=== PATIENT | female | born 1955 | race Caucasian/White ===

== ENCOUNTER → 2023-08-25 13:39 | Outpatient (REF) | payer MEDICARE, OTHER, SELFPAY | LOC: PAVMRI 13:39 | PROVIDERS: ATTENDING PHYSICIAN Internal Medicine Gastroenterology; FAMILY PHYSICIAN Internal Medicine | DX: R10.13 Epigastric pain (principal); Z13.6 Encounter for screening for cardiovascular disorders; E53.8 Deficiency of other specified B group vitamins; E55.9 Vitamin D deficiency, unspecified; R73.03 Prediabetes | CPT/HCPCS: 74183; A9575 ==

== ENCOUNTER → 2023-08-26 11:55 | Outpatient (REF) | payer MEDICARE, OTHER, SELFPAY ==
[2023-08-25 15:35] LABS: % Basophils 0.8 % (0-2); % Eosinophils 5.7 % (0-6); % Immature Granulocytes 0.3 % (0-0.5); % Lymphocytes 35.4 % (20.5-51.1); % Monocytes 6.8 % (1.7-9.3); Absolute Eosinophils 0.2 10^3/uL (0-0.7); Absolute Lymphocytes 1.3 10^3/uL (1.2-3.4); Absolute Monocytes 0.3 10^3/uL (0.1-0.6); Absolute Neutrophils 1.9 10^3/uL (1.4-6.5); Hematocrit 33.2 % (37.0-47.0); Hemoglobin 10.7 g/dL (12.0-16.0); Mean Corp Hgb Conc. 32.2 g/dL (33.0-37.0); Mean Corpuscular Hgb 32.4 pg (27.0-31.0); Mean Corpuscular Volume 100.6 fL (81.0-99.0); Mean Platelet Volume 11.8 fL (7.4-10.4); Nucleated Red Blood Cells % 0 %; Platelet Count 231 10^3/uL (130-400); Red Cell Dist. Width 15.1 % (11.5-14.5); White Blood Cell Count 3.7 10^3/uL (4.8-10.8)
[2023-08-25 16:07] LABS: ALT (SGPT) 12 U/L (0-35); AST (SGOT) 23 U/L (14-36); Albumin 4.6 g/dl (3.5-5.0); Alkaline Phosphatase 126 U/L (38-126); Blood Urea Nitrogen 13 mg/dl (7-17); Calcium 9.2 mg/dl (8.4-10.2); Carbon Dioxide 21 mmol/L (22-30); Chloride 105 mmol/L (98-107); Glucose 91 mg/dl (70-99); HDL Cholesterol 79 mg/dl; Iron 173 ug/dl (37-170); LDL Cholesterol, Calculated 111 mg/dl; Potassium 4.5 mmol/L (3.5-5.1); Sodium 138 mmol/L (135-145); Total Bilirubin 0.4 mg/dl (0.2-1.3); Total Cholesterol 229 mg/dl (50-199); Total Protein 7.7 g/dl (6.3-8.2); Triglyceride 199 mg/dl (10-149); Very Low Density Lipoprotein 39 mg/dl (0-30); eGFR > 60.00
[2023-08-25 16:17] LABS: Percent Saturation 44 % (20-50); Total Iron Binding Capacity 386 ug/dl (265-497)
[2023-08-25 16:25] LABS: Vitamin D, 25-OH*** 23.2 ng/mL (30-80)
[2023-08-25 16:39] LABS: TSH Reflex To Free T4 1.36 uIU/ml (0.47-4.68)
[2023-08-25 16:43] LABS: Ferritin 11.4 ng/ml (11.1-264.0)
[2023-08-25 16:58] LABS: Vitamin B12 285 pg/ml (239-931)
[2023-08-26 09:30] LABS: Glycohemoglobin (HgbA1c) 5.2 % (4.0-5.6)
== END ==
LOC: PAVMRI 11:55
PROVIDERS: ATTENDING PHYSICIAN Internal Medicine
DX: I10 Essential (primary) hypertension (principal); D50.9 Iron deficiency anemia, unspecified; R73.03 Prediabetes; E53.8 Deficiency of other specified B group vitamins; E55.9 Vitamin D deficiency, unspecified
CPT/HCPCS: 36415; 72146; 72148; 80053; 80061; 82306; 82607; 82728; 83036; 83540; 83550; 84443; 85025

== ENCOUNTER → 2024-01-02 12:23 | Outpatient (REF) | payer MEDICARE, OTHER, SELFPAY ==
[2024-01-02 13:35] LABS: Hematocrit 33.1 % (37.0-47.0); Hemoglobin 10.7 g/dL (12.0-16.0); Mean Corp Hgb Conc. 32.3 g/dL (33.0-37.0); Mean Corpuscular Hgb 33.6 pg (27.0-31.0); Mean Corpuscular Volume 104.1 fL (81.0-99.0); Mean Platelet Volume 11.6 fL (7.4-10.4); Platelet Count 198 10^3/uL (130-400); Red Blood Cell Count 3.18 10^6/uL (4.20-5.40); Red Cell Dist. Width 13.8 % (11.5-14.5)
[2024-01-02 13:58] VITALS: BMI 20.2
[2024-01-02 15:51] LABS: ALT (SGPT) 15 U/L (0-35); AST (SGOT) 24 U/L (14-36); Albumin 4.5 g/dl (3.5-5.0); Alkaline Phosphatase 87 U/L (38-126); Blood Urea Nitrogen 14 mg/dl (7-17); Calcium 8.8 mg/dl (8.4-10.2); Carbon Dioxide 25 mmol/L (22-30); Chloride 108 mmol/L (98-107); Estimated Creatinine Clearance 53 ml/min; Glucose 92 mg/dl (70-99); Potassium 5.7 mmol/L (3.5-5.1); Sodium 143 mmol/L (135-145); Total Bilirubin 0.4 mg/dl (0.2-1.3); Total Protein 7.1 g/dl (6.3-8.2); eGFR > 60.00
== END ==
LOC: SDSPAT 12:23
PROVIDERS: ATTENDING PHYSICIAN Orthopaedic Surgery Orthopaedic Surgery of the Spine; FAMILY PHYSICIAN Internal Medicine
DX: Z01.818 Encounter for other preprocedural examination (principal)
CPT/HCPCS: 36415; 80053; 85027; 86850; 86900; 86901; 87070; 93005

== ENCOUNTER 2024-01-18 06:51 | Day surgery (SDC) | payer MEDICARE, OTHER, SELFPAY ==
[2024-01-10 11:26] VITALS: BMI 20.2
--- NOTE | 2024-01-12 11:16 | PTCARENOTE ---
K+ 5.7, Kallie at MD office notified.
--- NOTE | 2024-01-12 14:22 | VNURNOTE ---
Received information from Clotilde Gonzáles in [facility] that patient intends to stay overnight after surgery on 01/17 and then go to rehab. Potential need for [facility]. Called patient, no answer, left message. Referral in [facility] in case needed.
--- NOTE | 2024-01-13 13:36 | PTCARENOTE ---
Patients 01/01 potassium- 5.7- reviwed by Dr. Reeves- no additional interventions required
[2024-01-18] VITALS (21 sets, daily range): BP systolic 89–135; BP diastolic 57–84; BMI 20.2
[2024-01-18] MEDS: TYLENOL 1000 MG PO ×2 (09:16→16:10)
[2024-01-18] MEDS: SKELAXIN 800 MG PO ×2 (09:16→17:16)
[2024-01-18] MEDS: CELEBREX 200 MG PO (09:16)
[2024-01-18] MEDS: LYRICA 150 MG PO (09:16)
[2024-01-18] MEDS: NORMOSOL-R/PLASMALYTE-A 1000 IV ×2 (09:16→18:47)
--- NOTE | 2024-01-18 13:06 | SUR.PHASEI ---
Patient with deep sedation on arrival to PACU. VSS. HANDY Cardozo TT for admit orders. Zbigniew Hightower RN BSN.
--- NOTE | 2024-01-18 13:23 | W.DS.TRANS ---
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
-
Discharge Instructions:
Sleep Apnea Risk Low
Discharge Diagnosis/Procedures lumbar psf Dr. Garcia 01/18/24
Diet As tolerated
Activity No strenuous activity
Driving Restrictions No driving
Instructions:
Stand-Alone Forms:
Changes to Home Medications: Yes
Discharge Medications:
DC Medications w/original date entered in [employer]
amlodipine 5 mg tablet 5 mg PO DAILY Blood pressure 11/15/15
clonazepam 0.5 mg tablet 0.5 mg PO BIDPRN PRN anxiety 11/15/15
docusate sodium 100 mg capsule 100 mg PO BID 11/11/19
albuterol 90 mcg/actuation aerosol inhaler 90 mcg inhalation PRN PRN sob 01/11/24
armodafinil 250 mg tablet (Nuvigil) 250 mg PO DAILY 01/11/24
cyanocobalamin (vitamin B-12) 1,000 mcg/mL injection solution 1,000 mcg IM QMONTH 01/11/24
dexlansoprazole 60 mg capsule,biphase delayed release (Dexilant) 60 mg PO BID 01/11/24
fluticasone furoate 100 mcg/actuation blister powder for inhalation (Arnuity Ellipta) 1 inh inhalation DAILY 01/11/24
Saccharomyces boulardii 250 mg capsule (Florastor) 250 mg PO BID #1 cap 01/18/24
cephalexin 500 mg capsule 500 mg PO QID infection prevention #20 caps 01/18/24
gabapentin 300 mg capsule 300 mg PO HS sleep/pain #10 caps 01/18/24
hydrocodone 10 mg-acetaminophen 325 mg tablet 1 tab PO Q6H PRN moderate-severe pain #30 tabs 01/18/24
magnesium hydroxide 400 mg/5 mL oral suspension (Milk of Magnesia) 30 ml PO HS PRN Constipation #1 mL 01/18/24
sennosides 8.6 mg tablet (Senokot) 17.2 mg (2 x 8.6 mg) PO BID laxative #2 tabs 01/18/24
Home Medication Changes
cephalexin 500 mg capsule 500 mg PO QID� infection prevention #20 caps 01/18/24�
gabapentin 300 mg capsule 300 mg PO HS sleep/pain #10 caps 01/18/24�
hydrocodone 10 mg-acetaminophen 325 mg tablet 1 tab PO Q6H PRN moderate-severe pain #30 tabs 01/18/24�
Pending Results: No
--- NOTE | 2024-01-18 14:24 | SUR.PHASEI ---
Patient stable in PACU but remains sedated. NV checks WNL. Dressing dry. Zbigniew Hightower RN BSN.
--- NOTE | 2024-01-18 16:05 | PTCARENOTE ---
1545. Called pharmacy, spoke to Astrid for scheduled med verification. Patients Valdo burnett. Zbigniew ulloa RN BSN.
[2024-01-18] MEDS: ULTRAM 50 MG PO ×2 (16:08→18:50)
--- NOTE | 2024-01-18 16:34 | SUR.PHASEI ---
second call to get Ancef verified and other non pacu pyxis meds be sent to PACU. Zbigniew Hightower RN BSN,
--- NOTE | 2024-01-18 18:40 | PTCARENOTE ---
Pt received from the PACU via bed. Transport was w/o incident. Pt is drowsy and easily arousable. Pt HRR with Murmur, SR on monitor. Lungs are clear, resp. easy, pulse ox 98% on 2Lvia nc. VSS, Pt is afebrile. Pt's lumbar back with 4x4 guaze and
tegaderm, C/D/I no drainage noted. Pt denies pain or nausea at this time. Pt instructed on plan of care. Pt verbalized understanding of instructions. Call varma is within reach.
[2024-01-18] MEDS: NORMOSOL-R/PLASMALYTE-A IV (18:43)
[2024-01-18] MEDS: ANCEF 5 IV (18:44)
[2024-01-18] MEDS: PROTONIX 40 MG PO (21:13)
[2024-01-18] MEDS: SENOKOT 17.2 MG PO (21:13)
[2024-01-18] MEDS: ULTRAM PO ×2 (21:13→21:15)
[2024-01-18] MEDS: KLONOPIN 0.5 MG PO (21:14)
[2024-01-18] MEDS: LYRICA PO ×2 (21:14→21:17)
[2024-01-18] MEDS: COLACE 100 MG PO (21:14)
[2024-01-18] MEDS: COMPAZINE 5 MG IV (21:38)
[2024-01-19] MEDS: TYLENOL 1000 MG PO ×3 (00:54→11:53)
[2024-01-19] MEDS: SKELAXIN 800 MG PO ×2 (00:54→08:43)
[2024-01-19] MEDS: ULTRAM PO (00:55)
[2024-01-19] MEDS: ANCEF 5 IV (01:03)
[2024-01-19 03:03] VITALS: BP 103/64
[2024-01-19] MEDS: NORMOSOL-R/PLASMALYTE-A 1000 IV (03:55)
[2024-01-19] MEDS: ULTRAM 50 MG PO ×3 (03:57→11:53)
[2024-01-19 05:48] LABS: Hematocrit 26.1 % (37.0-47.0); Hemoglobin 8.5 g/dL (12.0-16.0)
[2024-01-19 06:20] LABS: Blood Urea Nitrogen 10 mg/dl (7-17); Calcium 7.4 mg/dl (8.4-10.2); Carbon Dioxide 23 mmol/L (22-30); Chloride 108 mmol/L (98-107); Estimated Creatinine Clearance 60 ml/min; Glucose 97 mg/dl (70-99); Potassium 4.5 mmol/L (3.5-5.1); Sodium 142 mmol/L (135-145); eGFR > 60.00
[2024-01-19] MEDS: NON-FORMULARY ITEM 1 UNIT INH (07:30)
[2024-01-19 07:43] VITALS: BP 94/61
--- NOTE | 2024-01-19 08:01 | W.DS.TRANS ---
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
-
Discharge Instructions:
Sleep Apnea Risk Low
Discharge Diagnosis/Procedures lumbar psf Dr. Garcia 01/18/24
Diet As tolerated
Activity No strenuous activity
Driving Restrictions No driving
Instructions:
Stand-Alone Forms: Garcia Lumbar D/C Inst.
Changes to Home Medications: No
Discharge Medications:
DC Medications w/original date entered in [employer]
amlodipine 5 mg tablet 5 mg PO DAILY Blood pressure 11/15/15
clonazepam 0.5 mg tablet 0.5 mg PO BIDPRN PRN anxiety 11/15/15
docusate sodium 100 mg capsule 100 mg PO BID 11/11/19
albuterol 90 mcg/actuation aerosol inhaler 90 mcg inhalation PRN PRN sob 01/11/24
armodafinil 250 mg tablet (Nuvigil) 250 mg PO DAILY 01/11/24
cyanocobalamin (vitamin B-12) 1,000 mcg/mL injection solution 1,000 mcg IM QMONTH 01/11/24
dexlansoprazole 60 mg capsule,biphase delayed release (Dexilant) 60 mg PO BID 01/11/24
fluticasone furoate 100 mcg/actuation blister powder for inhalation (Arnuity Ellipta) 1 inh inhalation DAILY 01/11/24
Saccharomyces boulardii 250 mg capsule (Florastor) 250 mg PO BID #1 cap 01/18/24
cephalexin 500 mg capsule 500 mg PO QID infection prevention #20 caps 01/18/24
gabapentin 300 mg capsule 300 mg PO HS sleep/pain #10 caps 01/18/24
hydrocodone 10 mg-acetaminophen 325 mg tablet 1 tab PO Q6H PRN moderate-severe pain #30 tabs 01/18/24
magnesium hydroxide 400 mg/5 mL oral suspension (Milk of Magnesia) 30 ml PO HS PRN Constipation #1 mL 01/18/24
sennosides 8.6 mg tablet (Senokot) 17.2 mg (2 x 8.6 mg) PO BID laxative #2 tabs 01/18/24
Home Medication Changes
Pending Results: No
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
[2024-01-19] MEDS: PROTONIX 40 MG PO (08:42)
[2024-01-19] MEDS: KLONOPIN 0.5 MG PO (08:42)
[2024-01-19] MEDS: LYRICA 75 MG PO (08:43)
[2024-01-19] MEDS: SENOKOT 17.2 MG PO (08:43)
[2024-01-19] MEDS: COLACE 100 MG PO (08:43)
[2024-01-19 11:10] VITALS: BP 103/72
--- NOTE | 2024-01-19 11:39 | W.PN.ORTHO ---
Today's Communication / Plan
-
d/c
Assessment
.
Distal Motor Intact: Yes
Dressing:
Clean, dry and intact.
Assessment:
Plan
.
Surgery / Date: L3-4 psf inst,reimplantation of L4-5 Garcia 01/18/24
Activity:
Out of bed.
PT/OT
Discharge Plan: Home w/ VN
Subjective
.
.:
Patient resting comfortably.
Vital Signs and Labs
.
Vital Signs and Labs:
Lab Results
01/19/24 05:15
01/19/24 05:15
Temp Pulse Resp BP Pulse Ox
98 F 113 15 103/72 96
01/19/24 07:43 01/19/24 11:10 01/19/24 11:10 01/19/24 11:10 01/19/24 11:10
Physical Exam
-
HEENT: No pallor, cyanosis, or jaundice. Throat clear.
NECK: Supple. No JVD.
RESPIRATORY: Lungs clear to auscultation.
CVS: S1, S2 normal. RRR.� No murmur, rub or gallop.
ABDOMEN: Soft, non-tender. No distension. BS+/normal.
EXTREMITIES: strength equal, no calf pain with palpation
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 No focal deficits. 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
[2024-01-19] MEDS: NORMOSOL-R/PLASMALYTE-A IV (11:56)
[2024-01-19 12:15] VITALS: BP 103/72; BP 108/53; PULSE 57; O2SAT 96
[2024-01-19 15:22] VITALS: BP 90/54
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
== END 2024-01-19 16:00 | disposition home health service (06) ==
LOC: SDS 06:51
PROVIDERS: Physician Assistant Medical; ATTENDING PHYSICIAN Orthopaedic Surgery Orthopaedic Surgery of the Spine; FAMILY PHYSICIAN Internal Medicine
DX: M43.16 Spondylolisthesis, lumbar region (principal)
CPT/HCPCS: 22612; 20930; 22840; 72100; 76000; 80048; 85014; 85018; 97116; 97162; 97166; 97535; C1713; C1776

== ENCOUNTER → 2024-06-06 10:40 | Outpatient (REF) | payer MEDICARE, OTHER, SELFPAY | LOC: HWRAD 10:40 | PROVIDERS: ATTENDING PHYSICIAN Physician Assistant Medical; FAMILY PHYSICIAN Internal Medicine | DX: M43.16 Spondylolisthesis, lumbar region (principal) | CPT/HCPCS: 72131 ==

== ENCOUNTER → 2024-12-01 09:56 | Outpatient (REF) | payer MEDICARE, OTHER, SELFPAY ==
[2024-12-01 11:15] LABS: Hematocrit 36.8 % (37.0-47.0); Hemoglobin 11.5 g/dL (12.0-16.0); Mean Corp Hgb Conc. 31.3 g/dL (33.0-37.0); Mean Corpuscular Volume 106.1 fL (81.0-99.0); Nucleated Red Blood Cells % 0 %; Platelet Count 214 10^3/uL (130-400); Red Cell Dist. Width 14.4 % (11.5-14.5)
[2024-12-01 12:04] LABS: Glycohemoglobin (HgbA1c) 4.9 % (4.0-5.6)
[2024-12-01 12:30] LABS: ALT (SGPT) 15 U/L (0-35); AST (SGOT) 20 U/L (14-36); Albumin 4.6 g/dl (3.5-5.0); Alkaline Phosphatase 121 U/L (38-126); Blood Urea Nitrogen 20 mg/dl (7-17); Calcium 9.2 mg/dl (8.4-10.2); Carbon Dioxide 19 mmol/L (22-30); Chloride 113 mmol/L (98-107); Glucose 95 mg/dl (70-99); HDL Cholesterol 86 mg/dl; LDL Cholesterol, Calculated 167 mg/dl; Potassium 5.0 mmol/L (3.5-5.1); Sodium 142 mmol/L (135-145); Total Protein 7.6 g/dl (6.3-8.2); Very Low Density Lipoprotein 18 mg/dl (0-30); eGFR > 60.00
[2024-12-01 12:50] LABS: Vitamin D, 25-OH*** < 12.8 ng/mL (30-80)
[2024-12-01 13:23] LABS: Vitamin B12 512 pg/ml (239-931)
[2024-12-01 18:31] LABS: Hepatitis C Antibody Negative (Negative)
== END ==
LOC: REG 09:56
PROVIDERS: ATTENDING PHYSICIAN Internal Medicine
DX: Z13.6 Encounter for screening for cardiovascular disorders (principal); I10 Essential (primary) hypertension; Z13.1 Encounter for screening for diabetes mellitus; Z11.59 Encounter for screening for other viral diseases; E53.8 Deficiency of other specified B group vitamins; E55.9 Vitamin D deficiency, unspecified; R13.10 Dysphagia, unspecified; Z79.899 Other long term (current) drug therapy
CPT/HCPCS: 36415; 80053; 80061; 82306; 82607; 83036; 84439; 85025; 86803